=== PATIENT | female | born 1975 | race Caucasian/White ===

== ENCOUNTER 2016-12-21 19:35 | Emergency (ER) | payer MEDICAID, OTHER ==
[~2016-12-21] VITALS: Ht 157.5 cm; Wt 83.0 kg
[~2016-12-21 19:35] MED LIST: HYDR-3498 PO
[2016-12-21 19:43] VITALS: Ht 157.5 cm; Wt 83.0 kg
[2016-12-21] MEDS ORDERED: KETOROLAC 30 MG INJ IM STA (20:20)
[2016-12-21 20:33] LABS: URINE BLOOD (Dip) POC Trace-lysed (NEGATIVE)
--- NOTE | 2016-12-21 21:11 | RADRPT ---
PROCEDURE: US Gallbladder. CLINICAL INDICATION: Pain. Status post cholecystectomy. TECHNIQUE: Multiple real-time longitudinal and transverse images of the gallbladder were acquired utilizing a curved array transducer. Images were reviewed on a high-resolution PACS workstation. COMPARISON: CT abdomen 11/21/1999 see FINDINGS: Liver is overall normal in size and echogenicity. Multiple liver cysts redemonstrated, largest in t he posterior right lobe measuring 5.3 cm in diameter. The gallbladder has been removed. No intra o r extrahepatic biliary dilatation is seen. The common bile duct measures 3.5 mm in maximal dimensio n. No free fluid is identified. Right kidney is 9.1 cm in diameter. Right renal echogenicity is wi thin normal limits. There is a punctate echogenic focus in the right renal pelvis consistent with a nonobstructing calculus. No hydronephrosis. IMPRESSION: 1. Status post cholecystectomy. 2. No evidence for biliary obstruction. 3. Pancreatic tail not well visualized. Pancreas otherwise normal in appearance. 4. Nonobstructing calculus in the right kidney. No hydronephrosis. RPTAT: HMVK .Sanjay Brasher MD, MD Date Time Electronically viewed and signed by .Sanjay Brasher MD, MD on 12/21/2016 21:11 .K/
[2016-12-21] MEDS ORDERED: NITR-58 PO (21:19)
--- NOTE | 2016-12-21 21:34 | ERD ---
ER Documentation Chief Complaint Date/Time DATE: 12/21/16 TIME: 21:24 Chief Complaint RIGHT FLANK PAIN WITH DYSURIA X 2 DAYS HPI This is a 41 year old female presents to ER for dysuria and hematuria x 2 days. Patient also has intermittent right sided flank pain. Patient has been told that she has cysts in her liver. Has had cholecystectomy 5 years ago and appendectomy 2 years ago. Patient has frequent urinary tract infections. No fevers or chills. No nausea, vomiting or diarrhea. No abdominal pain no pelvic cramping or vaginal bleeding. ROS All systems reviewed and are negative except as per history of present illness. Medications Home Meds Active Scripts Nitrofurantoin Monohyd Macrocr* (Macrobid*) 100 Mg Capsr, 100 MG PO BID for 5 Days, CAP Prov:SYLVESTER HERNANDEZ [employer] 12/21/16 Hydrocodone Bit-Acetaminophen* ([place]*) 5-325 Mg Tab, 1 TAB PO Q4H Y for PAIN, # 30 TAB Prov:EZEQUIEL RUTH [employer] ME[employer]ER 11/22/15 Allergies Allergies: Coded Allergies: No Known Allergy (Verified , 11/12/13) PMhx/Soc History of Surgery: Yes (GALL BLADDER SURGERY,C SECTION,ECTOPIC PREG SX) Anesthesia Reaction: No Hx Neurological Disorder: No Hx Respiratory Disorders: No Hx Cardiac Disorders: Yes (HIGH CHOLESTEROL) Hx Psychiatric Problems: No Hx Miscellaneous Medical Probl: Yes (LIVER CYST,) Hx Alcohol Use: Yes (OCCASIONAL) Hx Substance Use: No Hx Tobacco Use: Yes (ONCE A DAY FOR PASSING BM.MON - FRI ONLY) Smoking Status: Never smoker Physical Exam Vitals Vital Signs Date Time Temp Pulse Resp B/P Pulse Ox O2 Delivery O2 Flow Rate FiO2 12/21/16 19:43 99.3 88 18 125/82 99 Physical Exam Const: No acute distress, alert Head: Atraumatic Eyes: Normal Conjunctiva ENT: Normal External Ears, Nose and Mouth. Neck: Full range of motion..~ No meningismus. Resp: Clear to auscultation bilaterally Cardio: Regular rate and rhythm, no murmurs Abd: Soft, non distended. Normal bowel sounds. suprapubic tenderness. right upper quadrant tenderness. Skin: No petechiae or rashes Back: No midline or flank tenderness Ext: No cyanosis, or edema Neur: Awake and alert Psych: Normal Mood and Affect Results 24 hrs Laboratory Tests Test 12/21/16 20:32 Bedside Urine Blood Trace-lysed Bedside Urine Glucose (UA) Negative Bedside Urine Ketones (LAB) Negative Bedside Urine Leukocyte Esterase (L Trace Bedside Urine Nitrite (LAB) Negative Bedside Urine Protein (LAB) Negative Bedside Urine pH (LAB) 6.0 Current Medications Medications (Trade) Dose Ordered Sig/Kameron Route PRN Reason Start Time Stop Time Status Last Admin Dose Admin Ketorolac Tromethamine (Toradol) 30 mg ONCE STAT IM 12/21/16 20:20 12/21/16 20:23 DC 12/21/16 20:43 Procedures/MDM ED COURSE: The patient was stable throughout ED course. I kept the patient and/or family informed of laboratory and diagnostic imaging results throughout the ED course. Laboratory Urine dip trace blood, trace leukocyte [facility] Gallbladder US Patient: TONI PRESCOTT : 1975 Age: 41 Sex: F MR #: [id number] DOS: 12/21/162019 Ordering MD: SYLVESTER HERNANDEZ NP Location: [facility] Room/Bed: PROCEDURE: US Gallbladder. CLINICAL INDICATION: Pain. Status post cholecystectomy. TECHNIQUE: Multiple real-time longitudinal and transverse images of the gallbladder were acquired utilizing a curved array transducer. Images were reviewed on a high-resolution PACS workstation. COMPARISON: CT abdomen 11/21/1999 see FINDINGS: Liver is overall normal in size and echogenicity. Multiple liver cysts redemonstrated, largest in the posterior right lobe measuring 5.3 cm in diameter. The gallbladder has been removed. No intra or extrahepatic biliary dilatation is seen. The common bile duct measures 3.5 mm in maximal dimension. No free fluid is identified. Right kidney is 9.1 cm in diameter. Right renal echogenicity is within normal limits. There is a punctate echogenic focus in the right renal pelvis consistent with a nonobstructing calculus. No hydronephrosis. IMPRESSION: 1. Status post cholecystectomy. 2. No evidence for biliary obstruction. 3. Pancreatic tail not well visualized. Pancreas otherwise normal in appearance. 4. Nonobstructing calculus in the right kidney. No hydronephrosis. MDM: 41-year-old female presents emergency department with dysuria and hematuria x 2 days. Patient also having right flank pain with right upper quadrant abdominal pain. Urine shows trace leukocyte esterase and trace blood. Gallbladder ultrasound shows status post cholecystectomy. No evidence for biliary obstruction. Nonobstructing calculus in the right kidney. No hydronephrosis. Patient given Toradol for pain. Patient states flank pain has resolved. Patient remains calm and comfortable throughout ED visit. Low suspicion for pyelonephritis or obstructive uropathy. Patient diagnosis is urinary tract infection. Patient is appropriate for outpatient management will be given prescription for Macrobid. Instructed patient to follow-up with primary care provider for reassessment in the next 24-48 hours. Return to ED for any high fever, chest pain, difficulty breathing, shortness breath, wheezing, vomiting, diarrhea, abdominal pain or any new or worsening symptoms. Patient verbalizes understanding. All questions answered at discharge. Departure Diagnosis: Primary Impression: Dysuria Condition: Stable Patient Instructions: Dysuria Ref[facility] Usted se campoverde hecho un examen mdico de control que le indica que no est en tamara condicin que requiera tratamiento urgente en el Departamento de Emergencia. Un estudio ms profundo y el tratamiento de pagan condicin pueden esperar sin ningn riesgo hasta que usted sea atendida/o en el consultorio de pagan mdico o tamara cl yann. Es responsabilidad suya arreglar tamara karolyn para el seguimiento del paco. MANEJO DE CONDICIONES NO URGENTES EN EL FUTURO 1) Si usted tiene un mdico de atencin primaria: Usted debera llamar a pagan mdico de atencin primaria antes de venir al departamento de emergencia. Despus de las horas de consultorio, pagan doctor o pagan asociado/a est disponible por telfono. El mdico o enfermero de ivan en el servicio telefnico puede asesorarle por drew medio para atender el problema, o paco contrario se puede programar tamara karolyn. 2) Si usted no tiene un mdico de atencin primaria: Llame al mdico o clnica de referencia que aparece abajo castro las horas de consultorio para hacer tamara karolyn para que le vean. CLINICAS: [facility] [phone] [facility] [phone] [facility]Y [facility] [phone] [facility] [phone] [place] [phone] [address] [phone] [facility]. [facility] () Usted se campoverde hecho un examen mdico de control que le indica que no est en tamara condicin que requiera tratamiento urgente en el Departamento de Emergencia. Un estudio ms profundo y el tratamiento de pagan condicin pueden esperar sin ningn riesgo hasta que usted sea atendida/o en el consultorio de pagan mdico o tamara cl yann. Es responsabilidad suya arreglar tamara karolyn para el seguimiento del paco. MANEJO DE CONDICIONES NO URGENTES EN EL FUTURO 1) Si usted tiene un mdico de atencin primaria: Usted debera llamar a pagan mdico de atencin primaria antes de venir al departamento de emergencia. Despus de las horas de consultorio, pagan doctor o pagan asociado/a est disponible por telfono. El mdico o enfermero de ivan en el servicio telefnico puede asesorarle por drew medio para atender el problema, o paco contrario se puede programar tamara karolyn. 2) Si usted no tiene un mdico de atencin primaria: Llame al mdico o condado institucions de referencia que aparece abajo castro las horas de consultorio para hacer tamara karolyn para que le vean. SI USTED NO PUEDE PAGAR PARA KATIE UN MEDICO puede ir a: [facility] [phone] [place] [address] [facility] [address] [place] [address] [facility] [address] [place] [address] [facility] [address] [place], [place] [id number] Additional Instructions: Follow up with Pelvic floor physical therapy. Return to ED for any high fever, chest pain, difficulty breathing, shortness breath, wheezing, vomiting, diarrhea, abdominal pain or any new or worsening symptoms. SYLVESTER HERNANDEZ NP Dec 21, 2016 21:34
== END 2016-12-21 21:33 | disposition home or self-care (01) ==
LOC: FTE 19:35
DX: R30.0 Dysuria (principal); F17.210 Nicotine dependence, cigarettes, uncomplicated
CPT/HCPCS: 76705; 81003; 96372; J1885; Z7502